=== PATIENT | female | born 1950 | race Caucasian/White ===

== ENCOUNTER 2021-05-08 01:34 | Outpatient (CLI) | payer MEDICARE, SELFPAY ==
[2021-05-08 12:45] LABS: Source Nasal/Nares
[2021-05-08 15:52] LABS: COVID-19 PCR Negative (Negative)
== END 2021-05-08 01:35 | disposition home or self-care (01) ==
LOC: LBO 01:34
PROVIDERS: PCP Nurse Practitioner Family; Visit Provider Ophthalmology
DX: Z20.822 Contact with and (suspected) exposure to COVID-19 (principal); Z01.818 Encounter for other preprocedural examination
CPT/HCPCS: 87635

== ENCOUNTER 2021-05-11 07:27 | Day surgery (SDC) | payer MEDICARE, SELFPAY ==
[2021-05-11 07:48] VITALS: BP 161/96; PULSE 87; RESP 16; TEMP 36.5; O2SAT 98
[2021-05-11] MEDS: Tropicam./Phenyleph. (1/2.5%) 5 ML BTL OS ×3 (07:55→08:05)
--- NOTE | 2021-05-11 08:39 | W.ANESPRE ---
General Info Date of Service Date Performed: 05/11/21 Height: 5 ft 7 in Weight: 107.2 kg Body Mass Index (BMI): 37.0 Surgical Procedure: Operation Date: 05/11/21 09:40 Proposed Procedures Side Surgeon p Cataract Extraction with IOL Implant Left Denis Stanton MD Meds Allergies and Home Medications Allergies Allergy/AdvReac Type Severity Reaction Status Date / Time codeine AdvReac Mild made me Unverified 05/11/21 07:46 feel loopy Penicillins AdvReac Mild Yeast Unverified 05/11/21 07:46 infection Home Medication Medication Instructions Recorded Emergency-C 1 packet PO DAILY PRN PRN 06/05/14 multivit,iron fum,min 4-folic 1 ea PO DAILY 09/13/14 [Multichew Chewable Tablet] ibuprofen 400 mg PO DAILY PRN 05/07/21 naproxen sodium [Aleve] 440 mg PO DAILY PRN 05/07/21 Current Visit Medications: Current Medications Generic Name Dose Route Start Last Admin Trade Name Freq PRN Reason Stop Dose Admin Acetaminophen 1,000 mg 05/11/21 06:00 Acetaminophen 500 Mg Tab PO Q4H PRN PRN Miscellaneous Medication 0 ml 05/11/21 06:00 Prednisolone 1%, Moxifloxacin 0.5%, Nepafenac 0.1% 5ml Btl OS DIRECTED TALA Miscellaneous Medication 0 ml 05/11/21 06:00 05/11/21 08:05 Tropicam./Phenyleph. (1/2.5%) 5 Ml Btl OS 1 drp DIRECTED TALA Administration Tetracaine HCl 0 ml 05/11/21 06:00 Tetracaine 0.5% 4 Ml Btl OS DIRECTED TALA PFSH Active Problems Active Problems: Problem Status Onset Code Posterior subcapsular age-related cataract of left eye H25.042 Nuclear sclerotic cataract of left eye H25.12 Personal history of allergy to penicillin Z88.0 Colostomy status Z93.3 Medical History Medical History Cerumen impaction Diverticulitis HTN (hypertension) Pain of right hip joint Surgical History Surgical History Diagnostic Laproscopy pre 1977 for infertility Dilation and curettage X 2 History of bowel resection Hx of knee surgery Tobacco Smoking/Tobacco Use Status: Former Tobacco Use Alcohol Alcohol Intake: never Substance Use Substance use: Daily Substance use type: marijuana Vital Signs and Lab Results Vital Signs Most Recent Vital Signs in EMR: Most Recent Vital Signs Temp Pulse Resp BP Pulse Ox 36.5 C 87 16 161/96 H 98 05/11/21 07:48 05/11/21 07:48 05/11/21 07:48 05/11/21 07:48 05/11/21 07:48 Lab Results Blood Type / Crossmatch: No Data to Display Complete Blood Count: No Data to Display Complete Metabolic Panel: No Data to Display Liver Function Panel: No Data to Display Coagulation Panel: No Data to Display Cardiac Panel: No Data to Display Arterial Blood Gas: No Data to Display Venous Blood Gas: No Data to Display Pancreas Panel: No Data to Display Thyroid Panel: No Data to Display Infectious Disease: Coronavirus (COVID-19)(PCR) Negative (Negative) 05/08/21 11:00 05/08/21 Coronavirus 2019 Source Nasal/Nares 05/08/21 11:00 05/08/21 Blood Cultures: No Data to Display Toxicology Panel: No Data to Display Anesthesia Assessment and Plan Anesthesia History Personal History: No History of Anesthesia Complications Family History: No Family History of Anesthesia Complications Exercise Tolerance Exercise Tolerance: Metabolic Equivalents>4 Pertinent Negatives Pertinent Negatives: No Symptoms of GERD, No Major Cardiovascular Symptoms or Complaints, No Major Pulmonary Symptoms or Complaints and No History of CVA/TIA Cardiac & Pulmonary Exam Cardiac Exam: Normal S1/S2 Heart Sounds Pulmonary Exam: Clear Bilateral Breath Sounds Airway Exam Known Difficult Airway: No Mallampati Class: 2 Mouth Opening: Normal (> 3cm) Thyromental Distance: Greater than 3 cm Neck Range of Motion: Full ROM Neck Circumference: Normal Teeth Condition: Normal Dentition Airway Comments: #12 missing Multiple Top broken teeth ASA Classification ASA Score: ASA 2 Emergency Case?: No NPO Status NPO Status: NPO Clears >2 hours, Solids >8 hours Anesthesia Plan Resuscitation Status: Full Code Anesthesia Technique: MAC Anesthesia Airway Planned: Natural Airway Monitors Used: Standard Monitors
[2021-05-11 08:40] VITALS: BMI 37.0
[2021-05-11 08:53] VITALS: BMI 37.0
--- NOTE | 2021-05-11 08:53 | W.ANESPRE ---
General Info Date of Service Date Performed: 05/11/21 Height: 5 ft 7 in Weight: 107.2 kg Body Mass Index (BMI): 37.0 Surgical Procedure: Operation Date: 05/11/21 09:40 Proposed Procedures Side Surgeon p Cataract Extraction with IOL Implant Left Denis Stanton MD Actual Procedures Side Surgeon p Cataract Extraction with IOL Implant Left Denis Stanton MD Pre-Op Diagnosis Post-Op Diagnosis CATARACT LEFT EYE Meds Allergies and Home Medications Allergies Allergy/AdvReac Type Severity Reaction Status Date / Time codeine AdvReac Mild made me Unverified 05/11/21 07:46 feel loopy Penicillins AdvReac Mild Yeast Unverified 05/11/21 07:46 infection Home Medication Medication Instructions Recorded Emergency-C 1 packet PO DAILY PRN PRN 06/05/14 multivit,iron fum,min 4-folic 1 ea PO DAILY 09/13/14 [Multichew Chewable Tablet] ibuprofen 400 mg PO DAILY PRN 05/07/21 naproxen sodium [Aleve] 440 mg PO DAILY PRN 05/07/21 Current Visit Medications: Current Medications Generic Name Dose Route Start Last Admin Trade Name Freq PRN Reason Stop Dose Admin Acetaminophen 1,000 mg 05/11/21 06:00 Acetaminophen 500 Mg Tab PO Q4H PRN PRN Miscellaneous Medication 0 ml 05/11/21 06:00 Prednisolone 1%, Moxifloxacin 0.5%, Nepafenac 0.1% 5ml Btl OS DIRECTED TALA Miscellaneous Medication 0 ml 05/11/21 06:00 05/11/21 08:05 Tropicam./Phenyleph. (1/2.5%) 5 Ml Btl OS 1 drp DIRECTED TALA Administration Tetracaine HCl 0 ml 05/11/21 06:00 Tetracaine 0.5% 4 Ml Btl OS DIRECTED TALA PFSH Active Problems Active Problems: Problem Status Onset Code Posterior subcapsular age-related cataract of left eye H25.042 Nuclear sclerotic cataract of left eye H25.12 Personal history of allergy to penicillin Z88.0 Colostomy status Z93.3 Medical History Medical History Cerumen impaction Diverticulitis HTN (hypertension) Pain of right hip joint Surgical History Surgical History Diagnostic Laproscopy pre 1977 for infertility Dilation and curettage X 2 History of bowel resection Hx of knee surgery Tobacco Smoking/Tobacco Use Status: Former Tobacco Use Alcohol Alcohol Intake: never Substance Use Substance use: Daily Substance use type: marijuana Vital Signs and Lab Results Vital Signs Most Recent Vital Signs in EMR: Most Recent Vital Signs Temp Pulse Resp BP Pulse Ox 36.5 C 87 16 161/96 H 98 05/11/21 07:48 05/11/21 07:48 05/11/21 07:48 05/11/21 07:48 05/11/21 07:48 Lab Results Blood Type / Crossmatch: No Data to Display Complete Blood Count: No Data to Display Complete Metabolic Panel: No Data to Display Liver Function Panel: No Data to Display Coagulation Panel: No Data to Display Cardiac Panel: No Data to Display Arterial Blood Gas: No Data to Display Venous Blood Gas: No Data to Display Pancreas Panel: No Data to Display Thyroid Panel: No Data to Display Infectious Disease: Coronavirus (COVID-19)(PCR) Negative (Negative) 05/08/21 11:00 05/08/21 Coronavirus 2019 Source Nasal/Nares 05/08/21 11:00 05/08/21 Blood Cultures: No Data to Display Toxicology Panel: No Data to Display Anesthesia Assessment and Plan Anesthesia History Personal History: No History of Anesthesia Complications Family History: No Family History of Anesthesia Complications Exercise Tolerance Exercise Tolerance: Metabolic Equivalents<4 Cardiac & Pulmonary Exam Cardiac Exam: Normal S1/S2 Heart Sounds Pulmonary Exam: Clear Bilateral Breath Sounds Airway Exam Known Difficult Airway: No Mallampati Class: 2 Mouth Opening: Normal (> 3cm) Thyromental Distance: Greater than 3 cm Neck Range of Motion: Full ROM Neck Circumference: Normal Teeth Condition: Normal Dentition ASA Classification ASA Score: ASA 2 Emergency Case?: No NPO Status NPO Status: NPO Clears >2 hours, Solids >8 hours Anesthesia Plan Resuscitation Status: Full Code Anesthesia Technique: MAC Anesthesia Airway Planned: Natural Airway Monitors Used: Standard Monitors
[2021-05-11] MEDS: Tetracaine 0.5% 4 ML BTL OS (08:54)
[2021-05-11] MEDS: Duovisc Viscoelastic System EACH 1 EACH (09:00)
[2021-05-11] MEDS: Balanced Salt Soln.-PLUS 500 ML BAG (09:00)
[2021-05-11] MEDS: Lidocaine 2% Jelly 6 ML SYR (09:01)
[2021-05-11] MEDS: Lidocaine 1% Pres-Free 5 ML VIAL (09:01)
[2021-05-11] MEDS: Povidone-Iodine Ophth 30 ML BTL (09:02)
[2021-05-11 09:16] VITALS: BP 136/83; PULSE 66; RESP 16; TEMP 36; O2SAT 97
--- NOTE | 2021-05-11 09:19 | W.PM.DSUDISC ---
Discharge Plan Disposition Patient Disposition: HOME Condition: Good Discharge Details Attending Provider: Denis Stanton Primary Care Provider: Alicia Blankenship Home Meds and New Rx's Prescriptions: No Action EMERGENCY-C 1 packet PO DAILY PRN PRNRF: 0 MultiChew 1 EACH tablet,chewable 1 ea PO DAILY RF: 0 naproxen sodium [Aleve] 220 mg Tablet 440 mg PO DAILY PRNRF: 0 ibuprofen 200 mg Tablet 400 mg PO DAILY PRNRF: 0 Discharge Instructions Stand Alone Forms: Post-op Topical Cataract, Jaylon Hinojosa (DSU) Discharge Orders Discharge Orders: Discharge Order (Routine); Ordered 05/11/21 Ordered By: Denis Stanton DS: Diagnosis Discharge Diagnosis (1) Posterior subcapsular age-related cataract of left eye: Status: Resolved (2) Nuclear sclerotic cataract of left eye: Status: Resolved
--- NOTE | 2021-05-11 09:22 | ROE_ITS ---
Date of service: 05/11/21 Time of Service: 09:23 Operative Note Operative Note DATE OF PROCEDURE: 05/11/21 PRE-OP DIAGNOSIS: Nuclear/anterior subcapsular cataract, left eye POST-OP DIAGNOSIS: same PROCEDURE: Cataract extraction using phacoemulsification with intraocular lens implant, left eye SURGEON: Denis Stanton ANESTHESIA TYPE: Local By Surgeon and MAC Refer to Anesthesia Record PATHOLOGY: none sent COMPLICATIONS: None Patient was transported to: same day Patient's condition: stable Implants: Alfred and Alfred / [employer] Tecnis [id number] Indications: Progressive decreased vision due to cataract, left eye Procedure Description: CATARACT SURGERY OPERATIVE REPORT PREOPERATIVE DIAGNOSIS: 1. Nuclear/anterior subcapsular cataract, left eye POSTOPERATIVE DIAGNOSIS: Same OPERATION: 1. Cataract extraction using phacoemulsification with posterior chamber intraocular lens implant, left eye. IOL: IOL [employer]/Model: Alfred & Alfred / GEORGE Tecnis [id number] IOL Power: + 21.0 diopters IOL Serial Number: [id number] Optic Diameter: 6.0 mm Haptic/Overall Diameter: 13.0 mm PHACO INFO: Cecilio Arc [employer]urion Vision System with OZil and Active Fluidics Cumulative Dispersed Energy (CDE): 3.71 seconds SURGEON: Denis Stanton MD, ARMANDO ANESTHESIA: Monitored A [facility] (MAC), with local sub-tenon's anesthetic infiltration COMPLICATIONS: None SPECIMENS: None INDICATIONS FOR PROCEDURE: The patient is a 71-year-old lady with history of diminished visual acuity in her left eye secondary to the development of anterior subcapsular cataract with nuclear cataract as well. The option of cataract surgery was offered to the patient and she felt she was symptomatic enough that she wished to proceed. PROCEDURE: The correct surgical eye was identified and marked as the left eye and the pupil was dilated in the preoperative area using mydriatics and cycloplegics. The dilated pupil size was 7.0 mm. She elected to proceed without oral sedation. The patient was brought to the operating room where cardiopulmonary monitoring was instituted and surgical time-out was performed, confirming the correct operative eye and IOL power. Topical anesthesia was administered and ophthalmic povidone-iodine 5% was instilled into the conjunctival fornices. Lidocaine gel was applied to the cornea and the amado-ocular area was prepped with Betadine 10% solution and draped in the usual sterile fashion for intraocular surgery, including an aperture drape. A Tegaderm transparent film dressing was cut in half and used to cover the lashes and lid margins. Care was taken to sequester the lashes and lid margins under the Tegaderm dressing. A lid speculum was placed between the lids of the operative eye and the Cynthia-Kathleen operating microscope was maneuvered into position. Damian scissors were then used to make a conjunctival buttonhole approximately 6mm posterior to the limbus in the inferonasal quadrant. Blunt dissection was carried out to expose bare sclera, and a blunt-tipped sub-tenon?s anesthesia cannula was introduced and passed posteriorly along the globe where non- preserved plain lidocaine was injected into posterior sub-Tenon?s space. A sideport knife was used to make a paracentesis port superiorly/superiortemporally. Intraocular phenylephrine/lidocaine was injected int the anterior chamber.. The anterior chamber was filled with viscoelastic. A 2.4mm keratome knife was used to create a half-thickness groove at the limbus and then to construct a three-plane near-clear corneal tunnel extending 2.0mm into clear cornea at the 3:00 position. A flap was raised on the anterior capsule and capsulorhexis forceps were used to complete a continuous curvilinear capsulorhexis of 5.5 mm. Balanced salt solution was then used to perform cortical cleaving hydrodissect ion and nuclear hydrodelineation until the lens could be freely rotated within the capsular bag. The lens nucleus was then disassembled and removed within the capsular bag and iris plane using phacoemulsification. Residual cortical material was removed using the 45-degree angled silicone I/A tip with 0.3mm port. The posterior capsule was carefully polished to remove as much residual lens epithelial cells as safely possible. The capsular bag was then inflated and the anterior chamber deepened with viscoelastic. The lens implant described above was inserted into the capsular bag using the GEORGE [place] Injector. A Kuglen hook was used to dial the IOL into position. Residual viscoelastic was then removed first from posterior to the IOL, then from the anterior chamber using the I/A handpiece. The lens implant was noted to center nicely within the capsular bag. The incisions were stromally hydrated, and the anterior chamber was reformed using BSS. Then 0.5cc of moxifloxacin 1.0mg/ml were injected into the capsular bag and anterior chamber. The incisions were checked with a Weck spear and found to be secure. Several drops of ophthalmic povidone-iodine 5% were then applied to the eye followed by two drops of Imprimis combination prednisolone/moxifloxacin/nepafenac solution. The drapes were removed and a clear plastic protective eye shield was placed over the eye. The patient was then returned to Same Day Surgery in stable condition.
--- NOTE | 2021-05-11 09:58 | W.ANESPOSTOP ---
Postoperative Evaluation Date, Time and Location Date Performed: 05/11/21 Time Performed: 09:59 Patient Location: Day Surgery Unit Vital Signs Most Recent Imported Vital Signs: Most Recent Vital Signs Temp Pulse Resp BP Pulse Ox 36 C L 66 16 136/83 97 05/11/21 09:16 05/11/21 09:16 05/11/21 09:16 05/11/21 09:16 05/11/21 09:16 Pain Score Most Recent Pain Score: Most Recent Pain Score Pain Level 0 05/11/21 09:16 Assessment Mental Status: Awake (Alert & Oriented to Patient Baseline) Airway and Respiratory Function: Patent airway with normal (patient baseline) respiratory exam Cardiovascular Function: Hemodynamically Stable Hydration Status: Adequately Hydrated Nausea & Vomiting: No Nausea or Vomiting Pain: Pt. Denies Any Pain Peripheral Nerve Block: Patient did not receive a nerve block
== END 2021-05-11 09:35 | disposition home or self-care (01) ==
PROVIDERS: PCP Nurse Practitioner Family; Visit Provider Ophthalmology
PROC: (CPT 66984; principal; 2021-05-11 09:30)
DX: H25.042 Posterior subcapsular polar age-related cataract, left eye (principal)
CPT/HCPCS: 66984; V2632

== ENCOUNTER 2021-05-22 03:14 | Outpatient (CLI) | payer MEDICARE, SELFPAY ==
[2021-05-22 11:05] LABS: Source Nasal/Nares
[2021-05-22 15:42] LABS: COVID-19 PCR Negative (Negative)
== END 2021-05-22 03:15 | disposition home or self-care (01) ==
LOC: LBO 03:14
PROVIDERS: PCP Nurse Practitioner Family; Visit Provider Ophthalmology
DX: Z20.822 Contact with and (suspected) exposure to COVID-19 (principal); Z01.818 Encounter for other preprocedural examination
CPT/HCPCS: 87635

== ENCOUNTER 2021-05-25 07:26 | Day surgery (SDC) | payer MEDICARE, SELFPAY ==
[2021-05-25 07:45] VITALS: BP 150/88; PULSE 74; RESP 16; TEMP 36.5; O2SAT 97
[2021-05-25] MEDS: Tropicam./Phenyleph. (1/2.5%) 5 ML BTL OD ×3 (08:01→08:17)
--- NOTE | 2021-05-25 08:43 | W.ANESPRE ---
General Info Date of Service Date Performed: 05/25/21 Height: 5 ft 7 in Weight: 105.6 kg Body Mass Index (BMI): 36.4 Surgical Procedure: Operation Date: 05/25/21 09:40 Proposed Procedures Side Surgeon p Cataract Extraction with IOL Implant Right Denis Stanton MD Meds Allergies and Home Medications Allergies Allergy/AdvReac Type Severity Reaction Status Date / Time codeine AdvReac Mild made me Unverified 05/25/21 07:58 feel loopy Penicillins AdvReac Mild Yeast Unverified 05/25/21 07:58 infection Home Medication Medication Instructions Recorded Emergency-C 1 packet PO DAILY PRN PRN 06/05/14 multivit,iron fum,min 4-folic 1 ea PO DAILY 09/13/14 [Multichew Chewable Tablet] ibuprofen 400 mg PO DAILY PRN 05/07/21 naproxen sodium [Aleve] 440 mg PO DAILY PRN 05/07/21 Current Visit Medications: Current Medications Generic Name Dose Route Start Last Admin Trade Name Freq PRN Reason Stop Dose Admin Acetaminophen 1,000 mg 05/26/21 06:00 Acetaminophen 500 Mg Tab PO Q4H PRN PRN Miscellaneous Medication 0 ml 05/26/21 06:00 Prednisolone 1%, Moxifloxacin 0.5%, Nepafenac 0.1% 5ml Btl OD DIRECTED TALA Miscellaneous Medication 0 ml 05/26/21 06:00 05/25/21 08:17 Tropicam./Phenyleph. (1/2.5%) 5 Ml Btl OD 1 drp DIRECTED TALA Administration Tetracaine HCl 0 ml 05/26/21 06:00 Tetracaine 0.5% 4 Ml Btl OD DIRECTED TALA PFSH Active Problems Active Problems: Problem Status Onset Code Personal history of allergy to penicillin Z88.0 Colostomy status Z93.3 Nuclear sclerotic cataract of left eye H25.12 Posterior subcapsular age-related cataract of left eye H25.042 Medical History Active Problem List (Updated 05/25/21 @ 07:58 by Sana Chilel) Personal history of allergy to penicillin (Chronic) Colostomy status (Acute) Medical History Cerumen impaction Diverticulitis HTN (hypertension) Pain of right hip joint Surgical History Surgical History (Updated 05/25/21 @ 07:58 by Sana Chilel) Diagnostic Laproscopy pre 1977 for infertility Dilation and curettage X 2 History of bowel resection Hx of cataract surgery Hx of knee surgery Tobacco Smoking/Tobacco Use Status: Former Tobacco Use Alcohol Alcohol Intake: never Substance Use Substance use: Daily Substance use type: marijuana Details: pt denies today Vital Signs and Lab Results Vital Signs Most Recent Vital Signs in EMR: Most Recent Vital Signs Temp Pulse Resp BP Pulse Ox 36.5 C 74 16 150/88 H 97 05/25/21 07:45 05/25/21 07:45 05/25/21 07:45 05/25/21 07:45 05/25/21 07:45 Lab Results Blood Type / Crossmatch: No Data to Display Complete Blood Count: No Data to Display Complete Metabolic Panel: No Data to Display Liver Function Panel: No Data to Display Coagulation Panel: No Data to Display Cardiac Panel: No Data to Display Arterial Blood Gas: No Data to Display Venous Blood Gas: No Data to Display Pancreas Panel: No Data to Display Thyroid Panel: No Data to Display Infectious Disease: Coronavirus (COVID-19)(PCR) Negative (Negative) 05/22/21 09:36 05/22/21 Coronavirus 2019 Source Nasal/Nares 05/22/21 09:36 05/22/21 Blood Cultures: No Data to Display Toxicology Panel: No Data to Display Anesthesia Assessment and Plan Anesthesia History Personal History: No History of Anesthesia Complications Family History: No Family History of Anesthesia Complications Exercise Tolerance Exercise Tolerance: Metabolic Equivalents>4 Pertinent Negatives Pertinent Negatives: No Symptoms of GERD, No Major Cardiovascular Symptoms or Complaints, No Major Pulmonary Symptoms or Complaints and No History of CVA/TIA Cardiac & Pulmonary Exam Cardiac Exam: Normal S1/S2 Heart Sounds Pulmonary Exam: Clear Bilateral Breath Sounds Implantable Cardiac Device Does patient have a Pacemaker or an ICD?: No Airway Exam Known Difficult Airway: No Mallampati Class: 2 Mouth Opening: Normal (> 3cm) Thyromental Distance: Greater than 3 cm Neck Range of Motion: Full ROM Neck Circumference: Normal Teeth Condition: Normal Dentition ASA Classification ASA Score: ASA 2 Emergency Case?: No NPO Status NPO Status: NPO Clears >2 hours, Solids >8 hours Anesthesia Plan Resuscitation Status: Full Code Anesthesia Technique: MAC Anesthesia Airway Planned: Natural Airway Monitors Used: Standard Monitors
[2021-05-25 08:45] VITALS: BMI 36.4
[2021-05-25] MEDS: Tetracaine 0.5% 4 ML BTL OD (08:56)
[2021-05-25] MEDS: Povidone-Iodine Ophth 30 ML BTL (09:10)
[2021-05-25] MEDS: Balanced Salt Soln.-PLUS 500 ML BAG (09:15)
[2021-05-25] MEDS: Lidocaine 2% Jelly 6 ML SYR (09:15)
[2021-05-25] MEDS: Duovisc Viscoelastic System EACH 1 EACH (09:15)
[2021-05-25] MEDS: Lidocaine 1% Pres-Free 5 ML VIAL (09:15)
--- NOTE | 2021-05-25 09:21 | W.PM.DSUDISC ---
Discharge Plan Disposition Patient Disposition: HOME Condition: Good Discharge Details Attending Provider: Denis Stanton Primary Care Provider: Alicia Blankenship Home Meds and New Rx's Prescriptions: No Action EMERGENCY-C 1 packet PO DAILY PRN PRNRF: 0 MultiChew 1 EACH tablet,chewable 1 ea PO DAILY RF: 0 naproxen sodium [Aleve] 220 mg Tablet 440 mg PO DAILY PRNRF: 0 ibuprofen 200 mg Tablet 400 mg PO DAILY PRNRF: 0 Discharge Instructions Stand Alone Forms: Post-op Topical Cataract, Jaylon Hinojosa (DSU) Discharge Orders Discharge Orders: Discharge Order (Routine); Ordered 05/25/21 Ordered By: Denis Stanton DS: Diagnosis Discharge Diagnosis (1) Nuclear sclerotic cataract of right eye: Status: Resolved (2) Posterior subcapsular age-related cataract, right eye: Status: Resolved
--- NOTE | 2021-05-25 09:21 | W.ANESPOSTOP ---
Postoperative Evaluation Date, Time and Location Date Performed: 05/25/21 Time Performed: 09:21 Patient Location: Day Surgery Unit Vital Signs Most Recent Imported Vital Signs: Most Recent Vital Signs Temp Pulse Resp BP Pulse Ox 36.5 C 74 16 150/88 H 97 05/25/21 07:45 05/25/21 07:45 05/25/21 07:45 05/25/21 07:45 05/25/21 07:45 Most Recent Manually Entered Vital Signs: Adult Blood Pressure: 125/78 Heart Rate: 68 Respirations: 10 Oxygen Saturation (%): 98 Temperature (C): 36.3 C Pain Score (0-10 Scale): 0 Pain Score Most Recent Pain Score: Most Recent Pain Score Pain Level 6 05/25/21 07:45 Assessment Mental Status: Awake (Alert & Oriented to Patient Baseline) Airway and Respiratory Function: Patent airway with normal (patient baseline) respiratory exam Cardiovascular Function: Hemodynamically Stable Hydration Status: Adequately Hydrated Nausea & Vomiting: No Nausea or Vomiting Pain: Pt. Denies Any Pain Peripheral Nerve Block: Patient did not receive a nerve block
[2021-05-25 09:22] VITALS: BP 125/78; PULSE 68; RESP 10; TEMPC 36.3; O2SAT 98
--- NOTE | 2021-05-25 09:22 | W.PM.OP ---
Date of service: 05/25/21 Time of Service: 09:22 Operative Note Operative Note DATE OF PROCEDURE: 01/26/21 PRE-OP DIAGNOSIS: Nuclear/posterior subcapsular cataract, right eye POST-OP DIAGNOSIS: same PROCEDURE: Cataract extraction using phacoemulsification with intraocular lens implant, right eye SURGEON: Denis Stanton ANESTHESIA TYPE: Local By Surgeon and MAC Refer to Anesthesia Record ESTIMATED BLOOD LOSS: 0 PATHOLOGY: none sent COMPLICATIONS: None Patient was transported to: same day Patient's condition: stable Implants: Alfred & Alfred/GEORGE Tecnis [id number] Indications: Progressive visual loss due to cataract, right eye Procedure Description: CATARACT SURGERY OPERATIVE REPORT PREOPERATIVE DIAGNOSIS: 1. Nuclear/posterior subcapsular cataract, right eye POSTOPERATIVE DIAGNOSIS: Same OPERATION: 1. Cataract extraction using phacoemulsification with posterior chamber intraocular lens implant, right eye. IOL: IOL [employer]ed [employer] Officer/Model: Alfred & Alfred / GEORGE Tecnis [id number] IOL Power: + 21.0 diopters IOL Serial Number: [id number] Optic Diameter: 6.0mm Haptic/Overall Diameter: 13.0mm PHACO INFO: Cecilio Sparkcloudurion Vision System with OZil and Active Fluidics Cumulative Dispersed Energy (CDE): 4.78 seconds SURGEON: Denis Stanton MD, ARMANDO ANESTHESIA: Monitored Anesthesia Care (MAC), with local sub-tenon's anesthetic infiltration COMPLICATIONS: None SPECIMENS: None INDICATIONS FOR PROCEDURE: The patient is a 71-year-old lady with history of progressive decreased vision in both eyes secondary to the development of bilateral cataract. She has already undergone cataract surgery in the left eye and is doing well postoperatively. She now presents for cataract surgery in the right eye. PROCEDURE: The correct surgical eye was identified and marked as the right eye and the pupil was dilated in the preoperative area using mydriatics and cycloplegics. The dilated pupil size was 7.0 mm. He elected to proceed without oral sedation. The patient was brought to the operating room where cardiopulmonary monitoring was instituted and surgical time-out was performed, confirming the correct operative eye and IOL power. Topical anesthesia was administered and ophthalmic povidone-iodine 5% was instilled into the conjunctival fornices. Lidocaine gel was applied to the cornea and the amado-ocular area was prepped with Betadine 10% solution and draped in the usual sterile fashion for intraocular surgery, including an aperture drape. A Tegaderm transparent film dressing was cut in half and used to cover the lashes and lid margins. Care was taken to sequester the lashes and lid margins under the Tegaderm dressing. A lid speculum was placed between the lids of the operative eye and the Cynthia-Kathleen operating microscope was maneuvered into position. Damian scissors were then used to make a conjunctival buttonhole approximately 6mm posterior to the limbus in the inferonasal quadrant. Blunt dissection was carried out to expose bare sclera, and a blunt-tipped sub-tenon?s anesthesia cannula was introduced and passed posteriorly along the globe where non-preserved plain lidocaine was injected into posterior sub-Tenon?s space. A sideport knife was used to make a paracentesis port inferotemporally. Intraocular phenylephrine/lidocaine was injected into the anterior chamber. The anterior chamber was filled with viscoelastic. A 2.4mm keratome knife was used to create a half-thickness groove at the limbus and then to construct a three-plane near-clear corneal tunnel extending 2.0mm into clear cornea superiortemporally. A flap was raised on the anterior capsule and capsulorhexis forceps were used to complete a continuous curvilinear capsulorhexis of 5.5 mm. Balanced salt solution was then used to perform cortical cleaving hydrodissection and nuclear hydrodelineation until the lens could be freely rotated within the capsular bag. The lens nucleus was then disassembled and removed within the capsular bag and iris plane using phacoemulsification. Residual cortical material was removed using the I/A handpiece. The posterior capsule was carefully polished to remove as much residual lens epithelial cells as safely possible. The capsular bag was then inflated and the anterior chamber deepened with viscoelastic. The lens implant described above was inserted into the capsular bag using the GEORGE [place] Injector. A Kuglen hook was used to dial the IOL into position. Residual viscoelastic was then removed first from posterior to the IOL, then from the anterior chamber using the I/A handpiece. The lens implant was noted to center nicely within the capsular bag. The incisions were stromally hydrated, and the anterior chamber was reformed using BSS. Then 0.5cc of moxifloxacin 1.0mg/ml were injected into the capsular bag and anterior chamber. The incisions were checked with a Weck spear and found to be secure. Several drops of ophthalmic povidone-iodine 5% were then applied to the eye followed by two drops of Imprimis combination prednisolone/moxifloxacin/nepafenac solution. The drapes were removed and a clear plastic protective eye shield was placed over the eye. The patient was then returned to [facility] Day Surgery in stable condition.
[2021-05-25 09:24] VITALS: BP 125/78; PULSE 67; RESP 16; TEMP 36.3; O2SAT 97
== END 2021-05-25 09:38 | disposition home or self-care (01) ==
PROVIDERS: PCP Nurse Practitioner Family; Visit Provider Ophthalmology
PROC: (CPT 66984; principal; 2021-05-25 09:30)
DX: H25.041 Posterior subcapsular polar age-related cataract, right eye (principal); I10 Essential (primary) hypertension
CPT/HCPCS: 66984; V2632

== ENCOUNTER 2021-06-11 20:22 | Outpatient (REF) | payer MEDICARE, SELFPAY | END 2021-06-11 20:23 | disposition home or self-care (01) | LOC: NCHCN 20:22 | PROVIDERS: PCP Nurse Practitioner Family; Visit Provider Nurse Practitioner Family | DX: H92.03 Otalgia, bilateral (principal) | CPT/HCPCS: 87101; 87206 ==

== ENCOUNTER 2021-08-14 10:34 | Outpatient (CLI) | payer MEDICARE, SELFPAY ==
--- NOTE | 2021-08-14 10:00 | DI.RAD_ITS ---
Exam(s) XR HIP RT COMPLETE AP PELVIS EXAM: XR HIP RT COMPLETE AP PELVIS CLINICAL HISTORY: pain. TECHNIQUE: 2D digital imaging was performed of the right hip. Three images were obtained. AP pelvis and lateral right hip views were obtained. COMPARISON: CR ABDOMEN FLAT PLATE from 05/18/2014 FINDINGS: BONES: No acute fracture is present. No bony destructive lesion is seen. JOINTS: No dislocation present. There are marked degenerative changes of the right hip with joint spa ce narrowing and periarticular spurring. These findings have significantly advanced compared to the most recent examination from 05/18/2014. Mild acetabular spurring is seen in the left hip. SOFT TISSUE: Atherosclerosis is present. IMPRESSION: Marked degenerative changes of the right hip. DATA REPOSITORY: RADIATION DOSE DELIVERED:
== END 2021-08-14 10:35 | disposition home or self-care (01) ==
LOC: DIORS 10:34
PROVIDERS: PCP Nurse Practitioner Family; Referring Provider Nurse Practitioner Family; Visit Provider Student in an Organized Health Care Education/Training Program
DX: M25.551 Pain in right hip (principal); M16.11 Unilateral primary osteoarthritis, right hip
CPT/HCPCS: 99214; 73502

== ENCOUNTER 2021-09-22 13:30 | Outpatient (CLI) | payer MEDICARE, SELFPAY | END 2021-09-22 13:31 | disposition home or self-care (01) | LOC: DIORS 13:30 | PROVIDERS: PCP Nurse Practitioner Family; Referring Provider Nurse Practitioner Family | DX: Z01.818 Encounter for other preprocedural examination (principal); M16.11 Unilateral primary osteoarthritis, right hip ==

== ENCOUNTER 2021-09-28 03:26 | Outpatient (CLI) | payer MEDICARE, SELFPAY ==
[2021-09-28 09:59] LABS: HCT 51.8 % (36.0-46.0); MCH 31.1 pg (27.0-33.0); MCHC 32.8 % (32.0-36.0); MCV 94.9 fL (80-95); MPV 10.4 fL (8.0-11.0); Platelet Count 219 10^3/uL (130-400); RBC 5.46 10^6/uL (3.93-5.22); RDW 12.9 % (11.7-14.6); RDW-SD 45.1 fL; WBC 9.07 10^3/uL (4.4-10.8)
[2021-09-28 10:09] LABS: Anion Gap 9.9 mmol/L (3-11); BUN 17 mg/dL (7-18); CO2 23.1 mmol/L (21.0-32.0); CREATININE 0.9 mg/dL (0.55-1.02); Calcium 9.2 mg/dL (8.5-10.1); Chloride 106 mmol/L (98-107); Glucose 161 mg/dL (74-106); Potassium 3.7 mmol/L (3.5-5.1); Sodium 139 mmol/L (136-145)
[2021-09-28 11:23] LABS: Source Nasal/Nares
[2021-09-28 13:39] LABS: COVID-19 PCR Negative (Negative)
== END 2021-09-28 03:27 | disposition home or self-care (01) ==
LOC: LBO 03:26
PROVIDERS: PCP Nurse Practitioner Family; Visit Provider Student in an Organized Health Care Education/Training Program
DX: M25.551 Pain in right hip (principal); M16.11 Unilateral primary osteoarthritis, right hip; Z20.822 Contact with and (suspected) exposure to COVID-19; Z01.818 Encounter for other preprocedural examination; Z01.812 Encounter for preprocedural laboratory examination
CPT/HCPCS: 36415; 80048; 85027; 86850; 86900; 86901; 87635

== ENCOUNTER 2021-09-29 06:01 | Day surgery (SDC) | payer MEDICARE, SELFPAY ==
[2021-09-29] VITALS (8 sets, daily range): BP systolic 102–162; BP diastolic 63–97; PULSE 63–87; RESP 13–21; TEMP 36–36.5; O2SAT 96–100; BMI 37.3
[2021-09-29] MEDS: Celecoxib 200 MG CAP 400 MG PO (06:33)
[2021-09-29] MEDS: Acetaminophen 500 MG TAB 1000 MG PO (06:34)
[2021-09-29] MEDS: Lactated Ringers 1,000 ML 80 ML IV (06:50)
--- NOTE | 2021-09-29 07:03 | W.ANESPRE ---
General Info Date of Service Date Performed: 09/29/21 Height: 5 ft 6 in Weight: 104.9 kg Body Mass Index (BMI): 37.3 Surgical Procedure: Operation Date: 09/29/21 07:50 Proposed Procedure Side Surgeon p Hip Total Hip Anterior Right Shade Bacon MD Meds Allergies and Home Medications Allergies Allergy/AdvReac Type Severity Reaction Status Date / Time codeine AdvReac Mild made me Verified 09/29/21 06:13 feel loopy Penicillins AdvReac Mild Yeast Verified 09/29/21 06:13 infection Home Medication Medication Instructions Recorded Emergency-C 1 packet PO DAILY PRN PRN 06/05/14 ibuprofen 200 mg tablet 400 mg PO DAILY PRN 05/07/21 naproxen sodium 220 mg tablet 440 mg PO DAILY PRN 05/07/21 (Aleve) multivitamin (Daily Multi-Vitamin) 1 tab PO DAILY 08/14/21 Current Visit Medications: Current Medications Generic Name Dose Route Start Last Admin Trade Name Freq PRN Reason Stop Dose Admin Acetaminophen 1,000 mg 09/29/21 06:00 09/29/21 06:34 Acetaminophen 500 Mg Tab PO 09/29/21 16:00 1,000 mg PREOP TALA Administration Celecoxib 400 mg 09/29/21 06:00 09/29/21 06:33 Celecoxib 200 Mg Cap PO 09/29/21 16:00 400 mg PREOP TALA Administration Tranexamic Acid 1,000 mg/ 60 mls @ 360 mls/hr 09/29/21 06:00 Sodium Chloride IV 09/29/21 16:00 PREOP TALA Ringer's Solution 1,000 mls @ 80 mls/hr 09/29/21 06:00 09/29/21 06:50 IV 10/08/21 23:59 80 mls/hr INFUSION TALA Administration Cefazolin Sodium/Dextrose 2 gm in 50 mls @ 100 mls/hr 09/29/21 06:00 Ancef Duplex IVPB 09/29/21 23:59 PREOP TALA IV Miscellaneous Supplies 1 each 09/29/21 06:00 Iv Access IV 10/08/21 23:59 DIRECTED TALA Sodium Chloride 0 ml 09/29/21 06:00 Normal Saline Flush 10 Ml Syr IV 10/08/21 23:59 PRN PRN Sodium Chloride 0 ml 09/29/21 06:00 Normal Saline 10 Ml Vial IJ 10/08/21 23:59 DIRECTED PRN Sterile Water 0 ml 09/29/21 06:00 Water,Injection,Sterile 10 Ml Vial IJ 10/08/21 23:59 DIRECTED PRN PFSH Active Problems Active Problems: Problem Status Onset Code Chronic eczematoid otitis externa H60.8X9 Osteoarthritis of right hip M16.11 Conductive hearing loss, external ear H90.2 Impacted cerumen, right ear H61.21 Otomycosis of both ears 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.9, H62.43 Posterior subcapsular age-related cataract, right eye H25.041 Nuclear sclerotic cataract of right eye H25.11 Personal history of allergy to penicillin Z88.0 Colostomy status Z93.3 Nuclear sclerotic cataract of left eye H25.12 Posterior subcapsular age-related cataract of left eye H25.042 Medical History Medical History Benign skin lesion of multiple sites BMI 37.0-37.9, adult Cerumen impaction Diverticulitis Elevated blood pressure reading without diagnosis of hypertension HTN (hypertension) Otalgia, bilateral Otomycosis Pain of right hip joint Polyarthralgia Pre-operative exam Preventative health care Varicosities of leg Surgical History Surgical History Diagnostic Laproscopy pre 1977 for infertility Dilation and curettage X 2 History of bowel resection Hx of cataract surgery 05/11/2021 left 05/25/2021 rt Hx of knee surgery Tobacco Smoking/Tobacco Use Status: Former Tobacco Use Alcohol Alcohol Intake: never Substance Use Substance use: Rarely Substance use type: marijuana Vital Signs and Lab Results Vital Signs Most Recent Vital Signs in EMR: Most Recent Vital Signs Temp Pulse Resp BP Pulse Ox 36.2 C L 87 16 162/90 H 98 09/29/21 06:13 09/29/21 06:13 09/29/21 06:13 09/29/21 06:13 09/29/21 06:13 Lab Results Blood Type / Crossmatch: Patient ABO/Rh A Positive 09/28/21 Antibody Screen NEGATIVE 09/28/21 Complete Blood Count: White Blood Count 9.07 10^3/uL (4.4-10.8) 09/28/21 09:47 09/28/21 Red Blood Count 5.46 10^6/uL (3.93-5.22) H 09/28/21 09:47 09/28/21 Hemoglobin 17.0 g/dL (11.2-15.7) H 09/28/21 09:47 09/28/21 Hematocrit 51.8 % (36.0-46.0) H 09/28/21 09:47 09/28/21 Platelet Count 219 10^3/uL (130-400) 09/28/21 09:47 09/28/21 Complete Metabolic Panel: Sodium Level 139 mmol/L (136-145) 09/28/21 09:47 09/28/21 Potassium Level 3.7 mmol/L (3.5-5.1) 09/28/21 09:47 09/28/21 Chloride Level 106 mmol/L (98-107) 09/28/21 09:47 09/28/21 Carbon Dioxide Level 23.1 mmol/L (21.0-32.0) 09/28/21 09:47 09/28/21 Blood Urea Nitrogen 17 mg/dL (7-18) 09/28/21 09:47 09/28/21 Creatinine 0.9 mg/dL (0.55-1.02) 09/28/21 09:47 09/28/21 Estimated GFR/1.73 m2 >= 60.00 (mL/min/1.73m2) 09/28/21 09:47 09/28/21 Calcium Level 9.2 mg/dL (8.5-10.1) 09/28/21 09:47 09/28/21 Glucose Level 161 mg/dL (74-106) H 09/28/21 09:47 09/28/21 Liver Function Panel: No Data to Display Coagulation Panel: No Data to Display Cardiac Panel: No Data to Display Arterial Blood Gas: No Data to Display Venous Blood Gas: No Data to Display Pancreas Panel: No Data to Display Thyroid Panel: No Data to Display Infectious Disease: Coronavirus (COVID-19)(PCR) Negative (Negative) 09/28/21 09:56 09/28/21 Coronavirus 2019 Source Nasal/Nares 09/28/21 09:56 09/28/21 Blood Cultures: No Data to Display Toxicology Panel: No Data to Display Anesthesia Assessment and Plan Anesthesia History Personal History: No History of Anesthesia Complications Family History: No Family History of Anesthesia Complications Exercise Tolerance Exercise Tolerance: Metabolic Equivalents>4 Pertinent Negatives Pertinent Negatives: No Symptoms of GERD, No Major Cardiovascular Symptoms or Complaints and No Major Pulmonary Symptoms or Complaints Cardiac & Pulmonary Exam Cardiac Exam: Normal S1/S2 Heart Sounds Pulmonary Exam: Clear Bilateral Breath Sounds Implantable Cardiac Device Does patient have a Pacemaker or an ICD?: No Airway Exam Known Difficult Airway: No Mallampati Class: 2 Mouth Opening: Normal (> 3cm) Thyromental Distance: Greater than 3 cm Neck Range of Motion: Full ROM Neck Circumference: Normal Teeth Condition: Normal Dentition Airway Comments: #12 missing Multiple Top broken teeth ASA Classification ASA Score: ASA 2 Emergency Case?: No NPO Status NPO Status: NPO Clears >2 hours, Solids >8 hours Anesthesia Plan Resuscitation Status: Full Code Anesthesia Technique: Spinal Anesthesia Airway Planned: Natural Airway Monitors Used: Standard Monitors
[2021-09-29] MEDS: ceFAZolin 2 GM/50 ML BAG IVPB (07:36)
[2021-09-29] MEDS: Bupivacaine 0.25% Pres-Free 30 ML VIAL (08:37)
[2021-09-29] MEDS: Ketorolac 30 MG/ML VIAL (08:37)
--- NOTE | 2021-09-29 08:48 | DI.RAD_ITS ---
Exam(s) XR HIP RT IN OR EXAM: XR HIP RT IN OR CLINICAL HISTORY: Osteoarthritis of right hip. TECHNIQUE: 2D and realtime digital imaging was performed. COMPARISON: CR XR HIP RT COMPLETE AP PELVIS from 08/14/2021 FINDINGS: Hard copy images show placement of right hip prosthesis. Please see procedure note for details. Fluoro time 19.4 seconds RADIATION DOSE DELIVERED: Ka,r= 4.55 mGy
--- NOTE | 2021-09-29 09:24 | W.PM.OP ---
Date of service: 09/29/21 Time of Service: 09:00 Operative Note Operative Note DATE OF PROCEDURE: 09/29/21 PRE-OP DIAGNOSIS: Right Hip Osteoarthritis POST-OP DIAGNOSIS: same PROCEDURE: Right Anterior Total Hip Arthroplasty with Intraoperative Navigation SURGEON: Shade Bacon BANDER AND CELLOPHANER MACHINE HELPER: Matt Guy Refer to Anesthesia Record PATHOLOGY: none sent COMPLICATIONS: None Patient was transported to: PACU Patient's condition: stable Implants: 1. Depuy [place] Acetabular Component, 54mm 2. Depuy Acetabular Liner, [id number] 3. Depuy Corail Standard Collared Femoral Stem, Size 12 4. Depuy Altrx Ceramic Femoral Head, Size 36+5mm Indications: I have seen Heidi in clinic for symptoms of hip arthritis, confirmed with radiographic findings. She has exhausted nonoperative methods and was having significant limitations in daily function and desired better function and less pain. I discussed the technical details of a hip replacement. I explained the risks of the procedure to include, but not limited to, bleeding, infection, pain, stiffness, fracture, damage to nerves and vessels, damage to muscles and tendons, loosening, instability, leg length inequality, need for repeat procedure, blood clot and cardiopulmonary demise. Despite these risks, Heidi elected to proceed. Findings: There was significant signs of arthritis throughout the hip. Notable deformity of the femoral head was seen. Procedure Description: Heidi was greeted in the preoperative holding area where the correct side was identified and marked. The consent was reviewed with the patient and signed. The history and physical was updated. All questions were answered. She was taken back to the operating room. A spinal anesthestic was then administered. The feet were wrapped with cast padding and Coban and then placed into the boot liners and then into the boots. Care was taken to protect the skin and make sure the heels were fully down and the boots were stable. The patient was then positioned onto the HANA table. Both legs were held in a neutral position. SCDs were applied. The patient was then slid down onto a peroneal post. Prophylactic antibiotics in the form of Cefazolin were administered. 1g of Tranxemic Acid was given intravenously within 30 minutes of incision. The right leg was then prepped with Chloraprep and draped in a standard fashion. A second prep with Chloraprep was performed prior to placement of a shower-curtain type drape with Iodine impregnated skin protection. A timeout to confirm correct identity, side and site, procedure, allergies, anesthesia, and medical concerns was performed. An obliquely oriented incision was made starting lateral to the ASIS and running distal over the Tensor Fascia Therese (TFL) muscle belly toward the fibular head, approximately 10cm. The skin and soft tissue was dissected sharply, through Jeff?s fascia, and to the fascia of the TFL. With the fascia and superior border of the IT band identified, the fascia was incised with a new knife just above any perforators from the IT band. The TFL muscle belly was bluntly dissected away from the fascia and moved laterally. The fat between TFL and rectus was identified to ensure the dissection was not within the TFL. Blunt dissection created space between abductors and the capsule and retractor was placed over the lateral femoral neck. The fibers of the rectus femoris tendon were identified and these were freed from the anterior capsule. A second cobra retractor was placed around the medial femoral neck. The TFL was further retracted laterally to show the deep fascia. Careful dissection through this layer identified three main crossing vessels of the lateral femoral circumflex. These were cauterized in multiple locations and then cut without any noticeable bleeding. The TFL was further released bluntly from the deep fascia to expose anterior hip capsule and fat The [place] orthopaedic retractor was then placed beneath the TFL and against sartorius and medial soft tissues to protect and retract the soft tissues. A T-capsulotomy was then performed starting at the superior lateral acetabulum and moving distally to the intertrochanteric ridge. These capsular flaps were tagged with a No. 1 Ethibond and elevated from within. The capsular flaps were released to the shoulder of the lateral neck and to the lesser trochanter to give excellent visualization of the proximal femur. A neck osteotomy was performed using an oscillating saw based on preoperative templates. This cut started in the shoulder and of the lateral neck and exited medially. The saw was at all times directed medially to avoid injury to the greater trochanter. Gross traction was applied to the leg and the osteotomy opened. The femoral head was removed with a corkscrew, making sure to protect the TFL on its exit. Traction was released after head removal. This was measured on the back table to determine the starting reamer size. Portions of the rectus obscuring visualization were minimally elevated off the superior acetabulum. An anterior retractor was placed over the anterior wall between capsule and labrum and attached to the Gripper retraction system. The femur was rotated to 90 degrees and medial capsule was fully released until the lesser trochanter was palpable and visible; the femur was returned to 30 degrees. A posterior retractor was placed similarly between capsule and labrum. This provided excellent visualization. The contents of the cotyloid fossa were removed with electrocautery and the labrum was removed with a knife. There was a notable floor osteophyte. Acetabular reaming began with a 50mm reamer. This first reaming was directed anterior to posterior and medial to get down to the true floor. This was inspected and reamed until the true floor was reached. The anterior retractor was then released and entry and exit was provided by traction on the capsular flaps. I then reamed sequentially up to a 54mm reamer where good fit was obtained. The larger reamers were oriented based on anatomical reference of the anterior and lateral prieto to ensure proper abduction and anteversion. Positioning and size was confirmed with the fluoroscopy. A 54mm Depuy [place] acetabular component was selected. The acetabulum was reamed around the periphery with the selected acetabular size to prevent a rim fit. The deep tissues were irrigated. The acetabular component was then impacted in a position of about 40-45 degrees of abduction and 15-20 degrees of anteversion, using the patient?s anatomy as the ultimate landmark. Fluoroscopy was used to confirm this. There was excellent icu nurse of the acetabular component and the inserting handle was removed. The acetabular liner, Depuy [id number] polyethylene liner, was inserted and lined up with the tines of the acetabular component. There was no soft tissue interposition. The liner was then impacted into position and confirmed to be well-seated. A portion of the amado-articular cocktail was then injected around the acetabulum into the capsule and periosteum. This cocktail consisted of 50cc of 0.25% Bupivicaine and 20cc of Exparel and 30mg of Ketorolac. The leg was rotated to 120 degrees. Any remaining medial capsule was released until the lesser trochanter was easily palpable. A retractor was placed medially. The lateral capsule was further released into the shoulder to allow access to the greater trochanter. A Domingo retractor was placed over the greater trochanter which allowed the trochanter to flip in front of the capsule for excellent exposure. The leg was brought down into maximal extension and 20 degrees of adduction while ensuring there was no impingement on the acetabulum. Any remnant capsule within the trochanter was released. Piriformis and obturator externis were identified and protected. There was excellent access to the proximal femur. The lateral neck remnant was removed with a rongeur. A blunt canal probe was used to identify the canal and trajectory for later broaching. A box osteotome initiated the broach course. A small curved rasp and a curved curette were used to work laterally. Broaching then began with a size 8 Corail broach. This was inserted manually around the trochanter and into the canal before mallet blows. The broach was seated to a few millimeters below the cut level based on the neck cut and the preoperative template. Sequential broaching was continued with the Drimki pneumatic broaching device until a tight fit was obtained with good rotational control of the femur. A trial standard neck was inserted along with a +1.5 trial head. The leg was brought out of extension and adduction and then reduced with traction and internal rotation. The leg was stable anteriorly in a position of 30 degrees of extension and 90 degrees of external rotation. Fluoroscopy was used to ensure there was no fracture and the stem was seated well. Leg lengths were checked with an AP pelvis and pelvic reference points. Sistemic navigation system was used to confirm appropriate positioning and leg length and offset. Once content with the desired offset and leg lengths, the leg was brought back into extension, external rotation and adduction. The periosteum and surrounding tissue was injected with remaining portion of the amado-articular cocktail. The proximal femur was irrigated as well as the deep tissues. The Depuy Corail standard collared stem, size 12, was then manually inserted into the proximal femur making sure to control rotation. It was then malleted into position with light blows, giving breaks to allow bone expansion and decrease risk of fracture. The selected Depuy Altrx Ceramic Head, size 36+5mm, was then placed onto the clean and dry trunnion and secured with impaction onto the tapered fit. The leg was brought back out of extension and adduction and reduced with traction and internal rotation. Stability was confirmed with no shuck at 90 degrees of external rotation and 30 degrees of extension. No impingement through range of motion arc. Final x-ray images were obtained with fluoroscopy to confirm adequate positioning and no intraoperative fracture. The deep tissues were thoroughly irrigated with Irrisept chlorhexadine solution. The capsule was then reapproximated with the previously placed Ethibond sutures. The TFL fascia was finally closed with a No. 2 Stratafix, barbed suture. Deep tissues were then reapproximated with 0 Vicryl and a running 2-0 Vicryl. The skin was closed with a running 4-0 Monocryl in a subcuticular fashion. This was reinforced with skin glue. A Mepilex silver dressing was applied. At the end of the case, all counts were correct. Heidi was transferred to the hospital bed without difficulty and suffering no apparent complication. She has a good prognosis. Physical therapy will start today and without restrictions, weight-bearing as tolerated. Aspirin 81mg BID will be used for DVT prophylaxis.
[2021-09-29] MEDS: oxyCODONE 5 MG TAB PO (10:35)
[2021-09-29] MEDS: diazePAM 2 MG TAB PO (11:07)
--- NOTE | 2021-09-29 11:09 | NUR.NOTE ---
Inner thigh pain increased from 6 to 10. Anesthesia Stephan Kaiser STONE CARVER called to bedside. Aqua K pack applied. Valium 2 mg PO ordered and given with effect pending. in attendance. Nursing Note:
--- NOTE | 2021-09-29 12:05 | IN_ITS ---
Date of service: 09/29/21 Time of Service: 12:05 PT Notes Visit Reasons: Right Hip DJD Physical Therapy Day Surgery Initial Evaluation Date: 09/29/2021 Referring Doctor: SHANA Petersen PT Orders: PT CONSULT: S/P Ortho surgery Precautions: WBAT on right LE with AD. Patient Profile/Admitting Diagnosis: Megan is a 71-year-old female with degenerative joint disease of the right hip and is status post right total hip arthroplasty on postoperative day 0. PMHX: Medical History? Benign skin lesion of multiple sites BMI 37.0-37.9, adult Cerumen impaction Diverticulitis Elevated blood pressure reading without diagnosis of hypertension HTN (hypertension) Otalgia, bilateral Otomycosis Pain of right hip joint Polyarthralgia Pre-operative exam Preventative health care Varicosities of leg Surgical History? Diagnostic Laproscopy pre 1977 for infertility Dilation and curettag X 2 History of bowel resection Hx of cataract surgery 05/11/2021 left 05/25/2021 rt Hx of knee surgery Social History/Home Situation: Lives with in a private home with one- step to enter. Independent with all ADLs prior to surgery however mobility has become increasingly difficult due to OA progression. Equipment Owned/DME: [employer] Subjective: Agreeable to PT consult. Reports 4/10 pain in the right hip and inner thigh that eventually subsided with pain pill medication and ambulation performance. Denies headache, chest pain, and dizziness throughout session. Objective: General Observation: Supine in bed. Mepilex Ag over surgical incision. TEDS and legs. Cold pack on right hip Mental Status: Alert and oriented x4 Pain: 4/10 pain in the right hip and inner thigh ROM: Right Lower Extremity: Hip flexion WFL. Hip abduction WFL. Knee flexion WFL. Ankle dorsiflexion WFL. Ankle plantarflexion WFL. Left Lower Extremity: Hip flexion WFL. Hip abduction WFL. Knee flexion WFL. Ankle dorsiflexion WFL. Ankle plantarflexion WFL. Strength: Right Lower Extremity: Hip flexors 4-/5. Hip abductors 4-/5. Knee flexors 4-/5. Knee extensors 4-/5. Ankle dorsiflexors 4-5. Ankle plantarflexors 4-/5. Left Lower Extremity:Hip flexors 4/5. Hip abductors 4/5. Knee flexors 4/5. Knee extensors 4/5. Ankle dorsiflexors 4/5. Ankle plantarflexors 4/5. Sensation: Intact as to pain and light pressure in bilateral lower extremities. Denies numbness and tingling in B LE. Bed Mobility/Transfers: Supine to sit independent Sit to stand contact-guard assist Stand to sit standby assist Bed to chair standby assist Gait: Instructed patient with level surface ambulation of 150 feet using front wheel walker with step through gait pattern requiring contact-guard assist and wheelchair followed by nurse Goel for safety. Denies headache, chest pain, and dizziness throughout activity. Reported no increase in pain level during activity. Stairs: Negotiated up and down 6 x 4 inch steps and 4 x 6 inch steps while holding onto bilateral rails with step to gait pattern requiring contact-guard assist PT and standby assist of nurse Amando for safety. Reported no increase in pain level during activity. Balance: Static Sitting: Normal Dynamic Sitting: Normal Static Standing: Fair Dynamic Standing: Fair Special Tests: Mobility Limitations Standardized Measure [facility] AM-PAC 6 clicks Basic Mobility Inpatient Short Form: Raw Score: 23 CMS Score: 11% deficit Informed Consent/Education: Patient instructed in purpose of PT consult. Education and training on initial set of exercises that can be done at home have been completed with patient using downloaded [employer] gwen on patient's mobile phone. Assessment: Heidi requires the use of a front wheel walker for mobility ADL performance to maximize independence and reduce fall risk. Patient presents with clinical signs and symptoms consistent with current/admitting diagnoses that have resulted to mobility limitations, gait instability, generalized weakness, and impairment of motor control as demonstrated by the following impairment level findings: 1. Decreased strength to right hip major muscle groups 2. Impaired standing balance Impairments are contributing to the following functional limitations: 1. Inability to safely ambulate without assistive device 2. Increase completion time for mobility ADL performance 3. Increased fall risk Patient is assessed as a [id number] moderate complexity based on the following: History: 71-year-old female with impairment level findings, functional limitations, and past medical history as indicated above Examination: Demonstrable impairment in strength, balance, and mobility level with underlying impairments and functional limitations as documented above Presentation: Evolving Decision Makin moderate Goals: N/A. PT evaluation and 1-2 treatment sessions only for functional mobility training using recommended AD and for HEP instruction. Plan of Care/Treatment Plan: N/A. PT evaluation and 1-2 treatment session only for functional mobility training using recommended AD and for HEP instruction. DISCHARGE RECOMMENDATIONS: [] Home with no services [] [] Home with services [specify] [X] Home with outpatient PT. Home when medically cleared by orthopedic surgeon. May benefit from outpatient PT services in order to facilitate return to independent community ambulation without an assistive device. [] SNF for continued rehabilitation [] [] [facility] [] [] SNF versus LTC based on ability to participate and progress [] TREATMENT CODE/TIME: 9716 2 x 26 minutes beginning at 12:05 PM. Thank you for the opportunity to participate in the care of this patient. Lisa Bhatt PT, DPT, CLT [facility] [place], [place]
--- NOTE | 2021-09-29 12:46 | W.ANESPOSTOP ---
Postoperative Evaluation Date, Time and Location Date Performed: 09/29/21 Time Performed: 12:46 Patient Location: Day Surgery Unit Vital Signs Most Recent Imported Vital Signs: Most Recent Vital Signs Temp Pulse Resp BP Pulse Ox 36.2 C L 69 16 136/84 96 09/29/21 11:32 09/29/21 11:32 09/29/21 11:32 09/29/21 11:32 09/29/21 11:32 Pain Score Most Recent Pain Score: Most Recent Pain Score Pain Level 5 09/29/21 11:32 Assessment Mental Status: Awake (Alert & Oriented to Patient Baseline) Airway and Respiratory Function: Patent airway with normal (patient baseline) respiratory exam Cardiovascular Function: Hemodynamically Stable Hydration Status: Adequately Hydrated Nausea & Vomiting: No Nausea or Vomiting Pain: Pain is tolerable per patient Peripheral Nerve Block: Patient did not receive a nerve block
== END 2021-09-29 12:57 | disposition home or self-care (01) ==
PROVIDERS: PCP Nurse Practitioner Family; Visit Provider Student in an Organized Health Care Education/Training Program
PROC: (CPT 27130; principal; 2021-09-29 07:30)
DX: M16.11 Unilateral primary osteoarthritis, right hip (principal); I10 Essential (primary) hypertension
CPT/HCPCS: 20985; 27130; C1776; 97162; 73501; J0690; J1885; J2250; J2405

== ENCOUNTER 2021-10-12 13:31 | Outpatient (CLI) | payer MEDICARE, SELFPAY ==
--- NOTE | 2021-10-12 10:45 | DI.RAD_ITS ---
Exam(s) XR HIP RT COMPLETE AP PELVIS EXAM: XR HIP RT COMPLETE AP PELVIS CLINICAL HISTORY: 1st post op R [facility]I. TECHNIQUE: 2D digital imaging was performed. COMPARISON: Prior x-rays 08/14/2021 FINDINGS: Views Stable position alignment of the components of the recently placed right hip prosthesis. No fracture nor loosening evident. IMPRESSION: DATA REPOSITORY: RADIATION DOSE DELIVERED:
== END 2021-10-12 13:32 | disposition home or self-care (01) ==
LOC: DIORS 13:31
PROVIDERS: PCP Nurse Practitioner Family; Referring Provider Nurse Practitioner Family; Visit Provider Physician Assistant Surgical
DX: Z96.641 Presence of right artificial hip joint (principal); Z47.1 Aftercare following joint replacement surgery
CPT/HCPCS: 73502

== ENCOUNTER → 2021-11-12 11:42 | Outpatient (BNVA) | payer MEDICARE, SELFPAY | PROVIDERS: PCP Nurse Practitioner Family; Referring Provider Nurse Practitioner Family; Visit Provider Student in an Organized Health Care Education/Training Program | DX: Z96.641 Presence of right artificial hip joint (principal) ==

== ENCOUNTER 2022-09-30 11:39 | Outpatient (CLI) | payer MEDICARE, SELFPAY ==
--- NOTE | 2022-09-30 10:00 | DI.RAD_ITS ---
Exam(s) XR HIP RT AP LAT ONLY EXAM: XR HIP RT AP LAT ONLY CLINICAL HISTORY: ANNUAL F/U R CECI. TECHNIQUE: 2D digital imaging was performed. Two images were obtained. AP and lateral views were ob tained. COMPARISON: CR XR HIP RT COMPLETE AP PELVIS from 10/12/2021 FINDINGS: BONES: There are stable post operative changes present. No fracture or dislocation. JOINTS: The orthopedic hardware is in good position. No evidence of hardware loosening. SOFT TISSUE: Normal. IMPRESSION: Stable postoperative changes. DATA REPOSITORY: RADIATION DOSE DELIVERED:
== END 2022-09-30 11:40 | disposition home or self-care (01) ==
LOC: DIORS 11:39
PROVIDERS: PCP Nurse Practitioner Family; Referring Provider Nurse Practitioner Family; Visit Provider Student in an Organized Health Care Education/Training Program
DX: Z47.1 Aftercare following joint replacement surgery (principal); Z96.641 Presence of right artificial hip joint
CPT/HCPCS: 99212; 73502